=== PATIENT | male | born 1960 | race African-American/Black ===

== ENCOUNTER 2018-07-11 11:39 | Inpatient (IN) | payer OTHER ==
[2018-07-11 11:59] VITALS: BMI 21.2
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
[2018-07-11] MEDS ORDERED: MAGNESIUM HYDROX 2400MG/30ML ORAL SUSPENSION 30 ML CUP PO PRN (13:53)
[2018-07-11] MEDS ORDERED: guaiFENesin/D-METHORPHAN HB 10 ML UNIT-DOSE CUPS PO PRN (13:53)
[2018-07-11] MEDS ORDERED: MAG HYDROX/AL HYDROX/SIMETH 30 ML UNIT-DOSE CUP PO PRN (13:53)
[2018-07-11] MEDS ORDERED: ACETAMINOPHEN 325 MG TABLET (FP) PO PRN (13:53)
[2018-07-11] MEDS ORDERED: LOPERAMIDE HCL 2 MG CAPSULE PO PRN (13:53)
[2018-07-11] MEDS ORDERED: MAGNESIUM CITRATE 300 ML BOTTLE PO PRN (13:53)
[2018-07-11] MEDS ORDERED: P-EPHED 60MG/TRIPROLIDI 2.5MG TABLET PO PRN (13:53)
[2018-07-11] MEDS ORDERED: IBUPROFEN 400 MG TABLET (FP) PO PRN (13:53)
[2018-07-11] MEDS: THIAMINE HCL 100 MG TABLET (FP) PO SCH (22:08)
[2018-07-11] MEDS: hydrOXYzine PAMOATE 50 MG CAPSULE (FP) PO PRN (22:08)
[2018-07-11] MEDS: MELATONIN 5 MG TABLETS PO PRN (22:09)
[2018-07-11] MEDS ORDERED: TUBERCULIN PPD 5 TU/0.1ML VIAL ID ONE (22:44)
[2018-07-11 23:31] LABS: URINE APPEARANCE CLEAR; URINE BILIRUBIN NEGATIVE (<2.0 mg/dL); URINE COLOR YELLOW; URINE GLUCOSE (UA) NEGATIVE (NEGATIVE); URINE KETONE NEGATIVE (NEGATIVE); URINE LEUK ESTERASE NEGATIVE (NEGATIVE); URINE NITRITE NEGATIVE (NEGATIVE); URINE PROTEIN NEGATIVE (NEGATIVE); URINE UROBILINOGEN NEGATIVE mg/dL (0.2-1.0)
[2018-07-12] MEDS ORDERED: METHADONE HCL 40 MG DISPERSABLE TABLET ONE (05:38)
[2018-07-12] MEDS ORDERED: METHADONE HCL 10 MG TABLET ONE (05:38)
[2018-07-12] MEDS ORDERED: METHADONE HCL 40 MG DISPERSABLE TABLET PO SCH (06:00)
[2018-07-12] MEDS: METHADONE 40 MG, METHADONE 20 MG PO SCH (06:12)
[2018-07-12] MEDS: PRENATAL VITAMINS W/ FOLIC ACID TABLET (FP) PO SCH (10:30)
[2018-07-12] MEDS: THIAMINE HCL 100 MG TABLET (FP) PO SCH (23:05)
[2018-07-12] MEDS: hydrOXYzine PAMOATE 50 MG CAPSULE (FP) PO PRN (23:06)
[2018-07-12] MEDS: MELATONIN 5 MG TABLETS PO PRN (23:06)
[2018-07-13] MEDS ORDERED: METHADONE HCL 10 MG TABLET ONE (02:41)
[2018-07-13] MEDS ORDERED: METHADONE HCL 40 MG DISPERSABLE TABLET ONE (02:42)
[2018-07-13] MEDS: METHADONE 40 MG, METHADONE 20 MG PO SCH (06:25)
[2018-07-13] MEDS: PRENATAL VITAMINS W/ FOLIC ACID TABLET (FP) PO SCH (10:03)
[2018-07-13] MEDS: THIAMINE HCL 100 MG TABLET (FP) PO SCH (22:02)
[2018-07-13] MEDS: MELATONIN 5 MG TABLETS PO PRN (22:02)
[2018-07-14] MEDS ORDERED: METHADONE HCL 40 MG DISPERSABLE TABLET ONE (04:03)
[2018-07-14] MEDS ORDERED: METHADONE HCL 10 MG TABLET ONE (04:03)
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
[2018-07-14] MEDS: METHADONE 40 MG, METHADONE 20 MG PO SCH (06:26)
[2018-07-14] MEDS: RANITIDINE HCL 150 MG TABLET (FP) PO PRN (07:21)
[2018-07-14] MEDS: PRENATAL VITAMINS W/ FOLIC ACID TABLET (FP) PO SCH (10:46)
[2018-07-14] MEDS: MENTHOL/PHENOL 1 EACH UD MM PRN (12:06)
[2018-07-14] MEDS ORDERED: MELATONIN 5 MG TABLETS PO PRN (22:00)
[2018-07-14] MEDS: THIAMINE HCL 100 MG TABLET (FP) PO SCH (22:13)
[2018-07-14] MEDS: MELATONIN 3 MG, MELATONIN 5 MG PO PRN (22:13)
--- NOTE | 2018-07-14 23:56 | EKG ---
Test Reason : Blood Pressure : / mmHG Vent. Rate : 064 BPM Atrial Rate : 064 BPM P-R Int : 140 ms QRS Dur : 070 ms QT Int : 402 ms P-R-T Axes : 067 -21 033 degrees QTc Int : 414 ms NORMAL SINUS RHYTHM NORMAL ECG NO PREVIOUS ECGS AVAILABLE Confirmed by DINAH CRAVEN MD ([id number]) on 07/14/2018 11:55:27 PM Referred By: Confirmed By:DINAH CRAVEN MD
[2018-07-15] MEDS ORDERED: METHADONE HCL 40 MG DISPERSABLE TABLET ONE (03:58)
[2018-07-15] MEDS ORDERED: METHADONE HCL 10 MG TABLET ONE (03:58)
[2018-07-15] MEDS: METHADONE 40 MG, METHADONE 20 MG PO SCH (06:24)
[2018-07-15] MEDS: PRENATAL VITAMINS W/ FOLIC ACID TABLET (FP) PO SCH (10:28)
[2018-07-15] MEDS: MENTHOL/PHENOL 1 EACH UD MM PRN (10:36)
[2018-07-15] MEDS: THIAMINE HCL 100 MG TABLET (FP) PO SCH (22:29)
[2018-07-15] MEDS ORDERED: PT OWN MED DRAWER 7, Y5N ONE (22:31)
[2018-07-15] MEDS: MELATONIN 3 MG, MELATONIN 5 MG PO PRN (22:31)
[2018-07-16] MEDS ORDERED: METHADONE HCL 10 MG TABLET ONE (04:06)
[2018-07-16] MEDS ORDERED: METHADONE HCL 40 MG DISPERSABLE TABLET ONE (04:06)
[2018-07-16] MEDS: METHADONE 40 MG, METHADONE 20 MG PO SCH (06:13)
[2018-07-16] MEDS: PRENATAL VITAMINS W/ FOLIC ACID TABLET (FP) PO SCH (10:37)
[2018-07-16] MEDS: THIAMINE HCL 100 MG TABLET (FP) PO SCH (22:01)
[2018-07-16] MEDS: MELATONIN 3 MG, MELATONIN 5 MG PO PRN (22:01)
[2018-07-16] MEDS ORDERED: PT OWN MED DRAWER 7, Y5N ONE (22:03)
[2018-07-17] MEDS ORDERED: METHADONE HCL 10 MG TABLET ONE (03:24)
[2018-07-17] MEDS ORDERED: METHADONE HCL 40 MG DISPERSABLE TABLET ONE (03:24)
[2018-07-17] MEDS: METHADONE 40 MG, METHADONE 20 MG PO SCH (06:27)
[2018-07-17] MEDS: PRENATAL VITAMINS W/ FOLIC ACID TABLET (FP) PO SCH (10:15)
[2018-07-17] MEDS: RANITIDINE HCL 150 MG TABLET (FP) PO PRN (10:29)
[2018-07-17] MEDS: ALBUTEROL SO4 8 GM HFA INHALER IH PRN (10:30)
[2018-07-17] MEDS ORDERED: PT OWN MED DRAWER 7, Y5N ONE ×2 (20:55→22:28)
[2018-07-17] MEDS: THIAMINE HCL 100 MG TABLET (FP) PO SCH (22:18)
[2018-07-17] MEDS: MELATONIN 3 MG, MELATONIN 5 MG PO PRN (22:18)
[2018-07-18] MEDS ORDERED: METHADONE HCL 10 MG TABLET ONE (05:47)
[2018-07-18] MEDS ORDERED: METHADONE HCL 40 MG DISPERSABLE TABLET ONE (05:47)
[2018-07-18] MEDS: METHADONE 40 MG, METHADONE 20 MG PO SCH (05:55)
[2018-07-18] MEDS: PRENATAL VITAMINS W/ FOLIC ACID TABLET (FP) PO SCH (10:41)
[2018-07-18] MEDS ORDERED: PT OWN MED DRAWER 7, Y5N ONE (21:51)
[2018-07-18] MEDS: MELATONIN 3 MG, MELATONIN 5 MG PO PRN (21:52)
[2018-07-18] MEDS: THIAMINE HCL 100 MG TABLET (FP) PO SCH (21:52)
[2018-07-18] MEDS: ALBUTEROL SO4 8 GM HFA INHALER IH PRN (21:52)
[2018-07-19] MEDS ORDERED: METHADONE HCL 40 MG DISPERSABLE TABLET ONE (04:06)
[2018-07-19] MEDS ORDERED: METHADONE HCL 10 MG TABLET ONE (04:06)
[2018-07-19] MEDS: METHADONE 40 MG, METHADONE 20 MG PO SCH (06:29)
[2018-07-19] MEDS: PRENATAL VITAMINS W/ FOLIC ACID TABLET (FP) PO SCH (10:32)
[2018-07-19] MEDS: THIAMINE HCL 100 MG TABLET (FP) PO SCH (22:06)
[2018-07-19] MEDS: MELATONIN 3 MG, MELATONIN 5 MG PO PRN (22:06)
[2018-07-20] MEDS ORDERED: METHADONE HCL 40 MG DISPERSABLE TABLET ONE (03:53)
[2018-07-20] MEDS ORDERED: METHADONE HCL 10 MG TABLET ONE (03:53)
[2018-07-20] MEDS: METHADONE 40 MG, METHADONE 20 MG PO SCH (06:08)
[2018-07-20] MEDS: PRENATAL VITAMINS W/ FOLIC ACID TABLET (FP) PO SCH (10:40)
[2018-07-20] MEDS: THIAMINE HCL 100 MG TABLET (FP) PO SCH (22:03)
[2018-07-20] MEDS: MELATONIN 3 MG, MELATONIN 5 MG PO PRN (22:03)
[2018-07-21] MEDS ORDERED: METHADONE HCL 10 MG TABLET ONE (05:52)
[2018-07-21] MEDS ORDERED: METHADONE HCL 40 MG DISPERSABLE TABLET ONE (05:52)
[2018-07-21] MEDS: METHADONE 40 MG, METHADONE 20 MG PO SCH (06:26)
[2018-07-21] MEDS: RANITIDINE HCL 150 MG TABLET (FP) PO PRN (07:32)
[2018-07-21] MEDS: ALBUTEROL SO4 8 GM HFA INHALER IH PRN (10:48)
[2018-07-21] MEDS: PRENATAL VITAMINS W/ FOLIC ACID TABLET (FP) PO SCH (10:48)
[2018-07-21] MEDS: MENTHOL/PHENOL 1 EACH UD MM PRN ×2 (10:50→21:36)
[2018-07-21] MEDS ORDERED: PT OWN MED DRAWER 7, Y5N ONE (20:47)
[2018-07-21] MEDS: THIAMINE HCL 100 MG TABLET (FP) PO SCH (21:35)
[2018-07-21] MEDS: MELATONIN 3 MG, MELATONIN 5 MG PO PRN (21:35)
[2018-07-22] MEDS ORDERED: METHADONE HCL 10 MG TABLET ONE (04:14)
[2018-07-22] MEDS ORDERED: METHADONE HCL 40 MG DISPERSABLE TABLET ONE (04:15)
[2018-07-22] MEDS: METHADONE 40 MG, METHADONE 20 MG PO SCH (06:27)
[2018-07-22] MEDS: PRENATAL VITAMINS W/ FOLIC ACID TABLET (FP) PO SCH (10:20)
[2018-07-22] MEDS: RANITIDINE HCL 150 MG TABLET (FP) PO PRN (10:22)
[2018-07-22] MEDS: MENTHOL/PHENOL 1 EACH UD MM PRN (10:22)
[2018-07-22] MEDS ORDERED: PT OWN MED DRAWER 7, Y5N ONE (20:30)
[2018-07-22] MEDS: THIAMINE HCL 100 MG TABLET (FP) PO SCH (21:56)
[2018-07-22] MEDS: MELATONIN 3 MG, MELATONIN 5 MG PO PRN (21:57)
[2018-07-23] MEDS ORDERED: METHADONE HCL 10 MG TABLET ONE (04:03)
[2018-07-23] MEDS ORDERED: METHADONE HCL 40 MG DISPERSABLE TABLET ONE (04:04)
[2018-07-23] MEDS: METHADONE 40 MG, METHADONE 20 MG PO SCH (06:28)
[2018-07-23] MEDS: MENTHOL/PHENOL 1 EACH UD MM PRN (10:26)
[2018-07-23] MEDS: RANITIDINE HCL 150 MG TABLET (FP) PO PRN (10:26)
[2018-07-23] MEDS: PRENATAL VITAMINS W/ FOLIC ACID TABLET (FP) PO SCH (10:26)
[2018-07-23] MEDS: THIAMINE HCL 100 MG TABLET (FP) PO SCH (22:09)
[2018-07-23] MEDS: MELATONIN 3 MG, MELATONIN 5 MG PO PRN (22:10)
[2018-07-24] MEDS ORDERED: METHADONE HCL 10 MG TABLET ONE (04:07)
[2018-07-24] MEDS ORDERED: METHADONE HCL 40 MG DISPERSABLE TABLET ONE (04:07)
[2018-07-24] MEDS: METHADONE 40 MG, METHADONE 20 MG PO SCH (06:24)
[2018-07-24] MEDS: RANITIDINE HCL 150 MG TABLET (FP) PO PRN (09:07)
[2018-07-24] MEDS: PRENATAL VITAMINS W/ FOLIC ACID TABLET (FP) PO SCH (09:07)
[2018-07-24] MEDS ORDERED: PT OWN MED DRAWER 7, Y5N ONE (20:07)
[2018-07-24] MEDS: THIAMINE HCL 100 MG TABLET (FP) PO SCH (22:19)
[2018-07-24] MEDS: MELATONIN 3 MG, MELATONIN 5 MG PO PRN (22:19)
[2018-07-25] MEDS ORDERED: METHADONE HCL 10 MG TABLET ONE (02:47)
[2018-07-25] MEDS ORDERED: METHADONE HCL 40 MG DISPERSABLE TABLET ONE (02:47)
[2018-07-25] MEDS: METHADONE 40 MG, METHADONE 20 MG PO SCH (06:16)
[2018-07-25 06:56] VITALS: BP 116/72; PULSE 73; TEMP 98.3
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
[2018-07-25] MEDS: PRENATAL VITAMINS W/ FOLIC ACID TABLET (FP) PO SCH (09:13)
== END 2018-07-25 09:19 | disposition home or self-care (01) | DRG 772 ==
LOC: YASAS 11:39 → Y3W 14:01
PROVIDERS: ADMIT Psychiatry & Neurology Psychiatry; ATTEND Psychiatry & Neurology Psychiatry
PROC: HZ42ZZZ Group Counseling for Substance Abuse Treatment, Cognitive-Behavioral (ICD-10-PCS; principal; 2018-07-11)
DX: F11.20 Opioid dependence, uncomplicated (principal); F10.20 Alcohol dependence, uncomplicated; F14.20 Cocaine dependence, uncomplicated; F17.210 Nicotine dependence, cigarettes, uncomplicated; F19.282 Other psychoactive substance dependence with psychoactive substance-induced sleep disorder; J45.909 Unspecified asthma, uncomplicated; K21.9 Gastro-esophageal reflux disease without esophagitis
CPT/HCPCS: 81003; 93005; 93010